=== PATIENT | male | born 1990 | race Caucasian/White ===

== ENCOUNTER 2024-01-26 07:53 | Emergency (ER) | payer MEDICAID ==
[~2024-01-26] VITALS: Ht 182.9 cm; Wt 83.9 kg
[~2024-01-26 07:53] MED LIST: CLAR-61 PO
[2024-01-26 08:05] VITALS: BP_SYST 107; PULSE 68; RESP 16; TEMP 97.1; O2SAT 99
[2024-01-26] MEDS: KETOROLAC TROMETHAMINE 30 MG VIAL IM ONE (08:29)
[2024-01-26] MEDS: LIDOCAINE PATCH 5% 1 EA TP ONE (08:30)
[2024-01-26] MEDS: CYCLOBENZAPRINE HCL 10 MG TABLET (FLEXERIL) PO ONE (08:30)
[2024-01-26 09:10] VITALS: BP_SYST 107; PULSE 68; RESP 16; TEMP 97.1; O2SAT 99
== END 2024-01-26 09:05 | disposition home or self-care (01) ==
LOC: SED 07:53
DX: S43.492A Other sprain of left shoulder joint, initial encounter (principal); D68.00 Von Willebrand disease, unspecified; Z88.2 Allergy status to sulfonamides; Z79.899 Other long term (current) drug therapy; X58.XXXA Exposure to other specified factors, initial encounter; Y93.11 Activity, swimming; Y92.89 Other specified places as the place of occurrence of the external cause; Y99.8 Other external cause status
CPT/HCPCS: 99283; 73030; 96372; J1885